=== PATIENT | male | born 1940 | race Caucasian/White ===

== ENCOUNTER 2016-11-30 12:01 | Outpatient (CLI) | payer MEDICARE, OTHER ==
[~2016-11-30] VITALS: Ht 175.3 cm; Wt 97.7 kg
--- NOTE | ~2016-11-30 | HEMODYNAMI ---
PATIENT:MARY MCKEON MEDICAL RECORD: [id number] : 42 LOCATION:[facility] ADMISSION DATE: 11/30/16 Generatedon:11/30/201615:44 Patient name: MARY MCKEON Patient #: [id number] : 1940 Date of study: 11/30/2016 Page: Of Hemodynamic Procedure Report Patient Data Patient Demographics Procedure consent was obtained First Name: MARY Gender: Male Last Name: LINDA : 1940 Middle Initial: R Age: 76 year(s) Patient #: [id number] Race: SSN: [id number] Additional ID: [id number] Contact details Address: [address] [place] [address] COURT State: [place] City: [facility] Zip code: [address] Past Medical History Allergies: No known allergies Admission Admission Data Admission Date: 11/30/2016 Admission Time: 12:01 Arrival Date: 11/30/2016 Arrival Time: 14:00 Admit Source: Other Insurance Payor: Medicare Height (in.): 69 BSA: 2.15 (m2) Height (cm.): 175.26 BMI: 32.34 (kg/m2) Weight (lbs.): 219 Weight (kg.): 99.34 Lab Results Lab Result Date: 11/30/2016 Lab Result Time: 0:00 Biochemistry Name Units Result Min Max BUN mg/dl 12 --(-*--)-- 7 18 Creatinine mg/dl 1 --(--*-)-- 0.6 1.3 CBC Name Units Result Min Max Hemoglobin g/dl 14.1 --(*---)-- 13.5 17.5 Procedure Procedure Types Cath Procedure Diagnostic Procedure [facility] w/Coronaries Miscellaneous Procedures Procedure Description Procedure Date Procedure Date: 11/30/2016 Procedure Start Time: 15:20 Procedure End Time: 15:41 Procedure Staff Name Function Long Taylor MD Performing Physician Anastacia Burger RT Scrub Zainab Almodovar RN Nurse Ileana Sierra RT Monitor Procedure Data Cath Procedure Fluoroscopy Diagnostic fluoroscopy Total fluoroscopy Time: 3.3 time: 3.3 min min Diagnostic fluoroscopy Total fluoroscopy dose: 595 dose: 595 mGy mGy Contrast Material Contrast Material Type Amount (ml) Isovue 300 84 Entry Location Entry Primary Successful Side Size Upsize Upsize Entry Closure Succes sful Closure Location (Fr) 1 (Fr) 2 (Fr) Remarks Device Remarks Femoral Right 5 Fr Exoseal artery Estimated blood loss: 10 ml Diagnostic catheters Device Type Used For End Catheter Placement Cordis 5Fr JL 4.0 Procedure Catheter (MP) Diagnostic Infinity 5Fr Procedure AR MOD Catheter Diagnostic 5Fr IMT Procedure Catheter Cordis 5Fr Pigtail Ventriculography Catheter (MP) Procedure Complications No complications Procedure Medications Medication Administration Route Dosage Oxygen NC 2 l/min Lidocaine 2% added to field 20 Heparin Flush Bag added to field 2 bags (1000units/500ml NS) 0.9% NaCl I.V. 100 ml/hr Benadryl I.V. 50 mg Versed I.V. 2 mg Fentanyl I.V. 50 mcg Versed I.V. 1 mg Fentanyl I.V. 50 mcg Versed I.V. 1 mg Fentanyl I.V. 50 mcg Hemodynamics Rest BSA: 2.15 (m2) HGB: 14.1 (g/dl) O2 Consumption: Estimated: 238.14 (ml/min) O2 Co nsumption indexed: Estimated:110.76 (ml/min/m) Heart Rate: 59 (bpm) Pressure Samples Time Site Value (mmHg) Purpose Heart Use Rate(bpm) 15:35 LV 144/-6,17 Snapshot 59 15:36 AO 136/56(87) Pullback 57 15:36 LV 138/-3,21 Pullback 57 Gradients Valve Time Site 1 Site 2 Mean SEP/DFP Peak To Heart Use (mmHg) (sec/min) Peak Rate (mmHg) (bpm) Aortic 15:36 LV AO 22 7 2 57 138/-3,21 136/56(87) Calculations Valve P-P Mean Valve Index Valve Source Name Gradient Area Flow (cm2) Aortic 2 22 2 22 Snapshots Pre Cath Intra NCS Post Cath Vital Signs Time Heart Resp SPO2 NIBP (mmHg) Rhythm Pain Sedation Rate (ipm) (%) Status Level (bpm) 15:13:12 58 19 97 152/79(125) NSR 0 (11) 10(A) , No pain 15:17:36 48 18 96 147/74(99) NSR 0 (11) 10(A) , No pain 15:21:42 52 16 95 119/92(112) NSR 0 (11) 10(A) , No pain 15:26:45 53 14 97 159/77(107) NSR 0 (11) 9(A) , No pain 15:31:07 54 16 96 144/77(98) NSR 0 (11) 9(A) , No pain 15:35:23 48 16 96 127/66(105) NSR 0 (11) 9(A) , No pain 15:39:41 53 17 97 146/75(106) NSR 0 (11) 10(A) , No pain Medications Time Medication Route Dose Verified Delivered Reason Notes Effe ctiveness by by 15:11:57 Oxygen NC 2 Long Buffie used for l/min Brandon Almodovar RN procedure 15:12:06 Lidocaine 2% added 20ml Long Long for local to vial Brandon Taylor MD anesthetic field 15:12:13 Heparin Flush added 2 Long Long used for Bag to bags Brandon Taylor MD procedure (1000units/500ml field NS) 15:12:23 0.9% NaCl I.V. 100 Long Buffie Per ml/hr Brandon Almodovar RN physician 15:12:34 Benadryl I.V. 50 mg Long Buffie used for Brandon Almodovar RN procedure 15:18:15 Versed I.V. 2 mg Long Buffie for Brandon Almodovar RN sedation 15:18:24 Fentanyl I.V. 50 Long Buffie for mcg Brandon Almodovar RN sedation 15:24:01 Versed I.V. 1 mg Long Buffie for Brandon Almodovar RN sedation 15:24:06 Fentanyl I.V. 50 Long Buffie for mcg Brandon Almodovar RN sedation 15:30:51 Versed I.V. 1 mg Long Buffie for Brandon Almodovar RN sedation 15:30:56 Fentanyl I.V. 50 Long Buffie for mcg Brandon Almodovar RN sedation Procedure Log Time Note 14:40:32 Anastacia Burger RT(R) sent for patient. Start room use. 14:53:11 Informed consent obtained and on chart 14:53:18 Arrival Date: 11/30/2016 2:00:00 PM 14:53:24 Insurance Payor : Medicare 14:53:25 Admit Source: Other 14:53:56 Patient Height : 175.26 cm 14:54:01 Patient Weight : 99.34 kg 14:56:59 Lab Result : Hemoglobin 14.1 g/dl 14:56:59 Lab Result : BUN 12 mg/dl 14:56:59 Lab Result : Creatinine 1 mg/dl 14:57:12 Diagnostic Cath Status : Elective 14:57:50 Time tracking: Regular hours 14:57:56 Plan of Care:Hemodynamics will remain stable., Cardiac rhythm will remain stable., Comfort level will be maintained., Respiratory function will remain adequate., Patient/ family verbilizes understanding of procedure., Procedure tolerated without complication., Recovers from procedure without complications.. 14:58:12 Patient received from Pre/Post Procedure Room to CCL 2 Alert and oriented. Tansferred to table in Supine position. 14:58:13 Warm blankets applied, and praveena hugger turned on for patient comfort. 14:58:13 Correct patient and procedure confirmed by team. 14:58:14 ECG and BP/O2 sat monitors applied to patient. 15:01:01 H&P Date Dictated: 11/30/2016 Within 30 days and on chart., H&P Addendum completed by physician on day of procedure. (MUST COMPLETE FOR ALL OUTPATIENTS). 15:01:12 Pre-procedure instructions explained to patient. 15:01:14 Family in waiting room. 15:01:17 Patient NPO since Midnight. 15:01:24 Patient allergic to No known allergies 15:01:32 Is the patient allergic to Iodine/contrast media? No. 15:01:43 Is patient on blood thinner?No 15:01:47 Patient diabetic? No. 15:01:52 Snore? Yes 15:01:53 Sleep apnea? Yes 15:01:59 Airway obstruction? No ? 15:02:03 Dentures? No ? 15:02:09 Patient pain scale 0/10 ?. 15:02:18 IV patent on arrival in left wrist with 0.9% NaCl at KVO. 15:02:23 Lab results completed and on chart. 15:: Right groin area was prepped with chlora-prep and draped in sterile fashion 15:: Alarms reviewed by R. N. 15:: Sharps counted by scrub and verified by R.N. 15:02:32 Physician paged 15:03:25 Physician arrived 15:07: Use device set Femoral Dx 15:: Acist Syringe opened to sterile field. 15:: Bag Decanter opened to sterile field. 15:: Medline Cath Pack opened to sterile field. 15:07: Terumo 5Fr Dar[place] Sheath opened to sterile field. 15:07: St Reyes 260cm J .035 wire opened to sterile field. 15:07:30 Acist Hand Control opened to sterile field. 15:: Acist Manifold opened to sterile field. 15::32 Diagnostic Infinity 5Fr Multipack catheter opened to sterile field. 15:07: Tegaderm 4 x 4 opened to sterile field. 15:11:57 Oxygen 2 l/min NC was administered by Zainab Almodovar RN; used for procedure; 15:11:58 Vital chart was started 15:12:06 Lidocaine 2% 20ml vial added to field was administered by Long Taylor MD; for local anesthetic; 15:12:13 Heparin Flush Bag (1000units/500ml NS) 2 bags added to field was administered by Long Taylor MD; used for procedure; 15:12:23 0.9% NaCl 100 ml/hr I.V. was administered by Zainab Almodovar RN; Per physician; 15:12:34 Benadryl 50 mg I.V. was administered by Zainab Almodovar RN; used for procedure; 15:14:33 --------ALL STOP TIME OUT------ 15:14:34 Final Timeout: patient, procedure, and site verified with staff and physician. All members of the team are in agreement. 15:14:36 Right groin site verified by team. 15:14:39 Physical assessment completed. ASA score P 2 - A patient with mild systemic disease as per Long Taylor MD. 15:14:43 Sedation plan: IV Moderate Sedation Versed, Fentanyl 15:18:15 Versed 2 mg I.V. was administered by Buffie Almodovar RN; for sedation; 15:18:24 Fentanyl 50 mcg I.V. was administered by Zainab Almodovar RN; for sedation; 15:20:06 Procedure started. 15:20:06 Full Disclosure recording started 15:20:09 Local anesthetic to right femoral artery with Lidocaine 2% by Long Taylor MD.INITIAL ACCESS ONLY 15:21:59 A 5 Fr sheath was inserted into the Right Femoral artery 15:22:03 ? wire advanced. 15:22:20 A Cordis 5Fr JL 4.0 Catheter (MP) was advanced over the wire and used for Procedure. 15:23:48 LCA angiography performed. 15:24:01 Versed 1 mg I.V. was administered by Zainab Almodovar RN; for sedation; 15:24:06 Fentanyl 50 mcg I.V. was administered by Zainab Almodovar RN; for sedation; 15:24:52 Catheter removed. 15:25:57 A Diagnostic Infinity 5Fr AR MOD Catheter was advanced over the wire and used for Procedure. 15:26:13 RCA angiography performed. 15:27:27 SVG to Diag occluded. 15:28:00 SVG to RCA occluded. 15:28:29 SVG to Circ angiography performed. 15:30:51 Versed 1 mg I.V. was administered by Zainab Almodovar RN; for sedation; 15:30:56 Fentanyl 50 mcg I.V. was administered by Zainab Almodovar RN; for sedation; 15:32:08 A Diagnostic 5Fr IMT Catheter was advanced over the wire and used for Procedure. 15:32:18 EVANS to LAD angiography performed. 15:35:22 Catheter removed. 15:35:27 A Cordis 5Fr Pigtail Catheter (MP) was advanced over the wire and used for Ventriculography. 15:36:24 EF : 60 % 15:37:16 Catheter removed. 15:38:05 Cordis 5Fr Exoseal opened to sterile field. 15:38:57 Sheath removed intact; hemostasis achieved with Exoseal to the Right Femoral artery. 15:39:01 Procedure ended.(Physican Out) 15:39:13 Fluoroscopy time 03.30 minutes. 15:39:17 Flurop Dose total: 595 15:39:17 Fluoroscopy dose: 595 mGy 15:39:21 Contrast amount:Isovue 300 84ml. 15:39:23 Sharps counted by scrub and verified by R.N. 15:39:26 Insertion/operative site no bleeding no hematoma. 15:39:30 Post-op/insertion site Right Femoral artery dressed using a 4 x 4 and Tegaderm. 15:39:33 Post Procedure Pulses reassessed and unchanged 15:39:38 Post-procedure physical assessment completed. ASA score P 2 - A patient with mild systemic disease as per Long Taylor MD. 15:39:42 Post procedure rhythm: unchanged. 15:39:49 Estimated blood loss: 10 ml 15:39:54 Post procedure instruction explained to patient.Patient verbalizes understanding. 15:40:11 Procedure and supply charges have been captured, reviewed, submitted and are correct. 15:40:51 Procedure Complication : No complications 15:40:55 Vital chart was stopped 15:40:56 See physician's report for complete and final results. 15:41:03 Report given to Pre/Post Procedure Room. 15:41:06 Patient transfered to Pre/Post Procedure Room with Stretcher. 15:41:09 Procedure ended. 15:41:09 Full Disclosure recording stopped 15:41:13 End room use (Document Last) Device Usage Item Name Manufacture Quantity Catalog Number Hospital Part Current Minima l Lot# / Charge Number Stock Stock Serial# Code Acist Acist 1 [id number] [id number] 143411 067880 20 Syringe [employer] Bag Microtek 1 [id number] 04439 [id number] 5 Decanter [employer] Medline Cardinal 1 [id number] 290563 53036 994051 5 Cath Pack Health Terumo 5Fr Terumo 1 [id number] 056437 450513 159695 [address] St Reyes 1 327156 757474 033023 329800 30 260cm J .035 wire Acist Hand Acist 1 76285 311312 220939 516781 5 Control [employer] Inc Acist Acist 1 13550 363545 970036 106770 5 Manifold [employer] Inc Diagnostic Cardinal 1 [id number] 175822 39037 662714 30 ALICE App 5Fr Multipack catheter Tegaderm 4 3M 1 1626W 765879 109747 323918 5 x 4 Cordis 5Fr Cardinal 1 756812 5 JL 4.0 Health Catheter (MP) Diagnostic Cardinal 1 [id number] 534667 508900 450711 15 Infinity Health 5Fr AR MOD Catheter Diagnostic Henderson 1 [id number] 568545 963953 01064 5 5Fr IMT Scientific Catheter Cordis 5Fr Cardinal 1 [id number] 5 Pigtail Health Catheter (MP) Cordis 5Fr Cardinal 1 EX500 471391 295129 337470 10 [facility] Taecanet Signature Audit Lefor Stage Time Signature Unsigned Intra-Procedure 11/30/2016 Ileana Sierra 3:44:15 PM RT(R) Signatures Monitor : Ileana Sierra Signature : RT Date : Time : [place] [address] [place] [address]
[~2016-11-30 12:01] MED LIST: ACETAMINOPHEN325 MG PO; AMOXICILLIN500 M1 PO; CARDURA4 MG PO; COZAAR100 MG PO; KLOR-CON 1010 MEQ PO; LIPITOR40 MG PO; MIRAPEX0.125 MG PO; NORVASC10 MG PO; PROZAC10 MG PO; SYNTHROID100 MCG PO; ULTRAM50 MG PO; VITAMIN D31000 UNIT PO; XANAX1 MG PO; ZEBETA10 MG PO; ZIAC 10-6.25 MG1 TAB PO
[2016-11-30] MEDS ORDERED: NITROSTAT0.4 MG SL (13:12)
[2016-11-30] MEDS ORDERED: MAG 6464 MG PO (13:13)
[2016-11-30] MEDS ORDERED: BAYER CHEWABLE81 MG PO (13:14)
[2016-11-30] MEDS ORDERED: PROTONIX40 MG PO (13:14)
[2016-11-30] MEDS ORDERED: NEURONTIN 300300 MG PO (13:15)
[2016-11-30 13:24] VITALS: BP 148/69; Ht 175.3 cm; Wt 97.7 kg
[2016-11-30 13:41] LABS: CALC OSMOLALITY 280 mosm/kg (275-300); CALCIUM 8.5 mg/dL (8.5-10.1); CARBON DIOXIDE 27.2 mmol/L (21.0-32.0); CHLORIDE - SERUM 104 mmol/L (98-107); GLUCOSE 95 mg/dL (74-106); POTASSIUM - SERUM 3.8 mmol/L (3.5-5.1); SODIUM 141 mmol/L (136-145); UREA NITROGEN 12 mg/dL (7-18); eGFR NON AFRICAN AMERICAN 77 mL/min (90-120)
[2016-11-30 14:01] LABS: BASOPHILS 0.4 % (0-2); EOSINOPHILS 2.2 % (0-7); HEMATOCRIT 42.9 % (42.0-54.0); HEMOGLOBIN 14.1 g/dL (13.5-17.5); IMMATURE GRANULOCYTES 0.2 % (0-5); LYMPHOCYTES 35.9 % (15-50); MCH 24.3 pg (26.0-34.0); MCHC 32.9 g/dL (31.0-37.0); MEAN PLATELET VOLUME 11.2 fL (7.4-10.4); MONOCYTES 8.3 % (2-11); PLATELET COUNT 146 10x3/uL (130-400); RDW 16.3 % (11.5-14.5); WBC 5.6 10x3/uL (4.8-10.8)
--- NOTE | 2016-11-30 16:00 | NUR ---
RIGHT GROIN CDI-BANDAID AT SITE, NO HEMATOMA OR BLEEDING NOTED, SITE SOFT TO TOUCH. AT SIDE
--- NOTE | 2016-11-30 16:30 | NUR ---
SANDWICH AND COLA SERVED, DENIES FURTHUR NEEDS AT THIS TIME
--- NOTE | 2016-11-30 18:15 | NUR ---
IV D'C WITH CATH TIP INTACT, WRITTEN AND VERBAL D'C INSTRUCTIONS GIVEN TO PT AND . AWAITING RIDE. DENIES PAIN OR FURTHUR NEEDS 1830-D'C HOME WITH FAMILY
== END 2016-11-30 18:30 | disposition home or self-care (01) ==
LOC: D.CATH 12:01
PROVIDERS: Internal Medicine Cardiovascular Disease
DX: I25.110 Atherosclerotic heart disease of native coronary artery with unstable angina pectoris (principal); I25.710 Atherosclerosis of autologous vein coronary artery bypass graft(s) with unstable angina pectoris; I10 Essential (primary) hypertension; E78.5 Hyperlipidemia, unspecified; F32.9 Major depressive disorder, single episode, unspecified; E07.9 Disorder of thyroid, unspecified; Z79.891 Long term (current) use of opiate analgesic; Z79.2 Long term (current) use of antibiotics; Z79.899 Other long term (current) drug therapy; Z01.812 Encounter for preprocedural laboratory examination

== ENCOUNTER 2017-01-04 12:14 | Emergency (ER) | payer MEDICARE, OTHER ==
[2016-11-30 13:24] VITALS: BMI 31.8
[~2017-01-04 12:14] MED LIST changes: +BAYER CHEWABLE81 MG PO; +MAG 6464 MG PO; +NEURONTIN 300300 MG PO; +NITROSTAT0.4 MG SL; +PROTONIX40 MG PO
[2017-01-04 13:38] LABS: APPEARANCE CLEAR (CLEAR); BILIRUBIN NEGATIVE (NEGATIVE); COLOR YELLOW (YELLOW); GLUCOSE NEGATIVE (NEGATIVE); KETONE NEGATIVE (NEGATIVE); LEUKOCYTE ESTERASE NEGATIVE (NEGATIVE); NITRITE NEGATIVE (NEGATIVE); PROTEIN NEGATIVE (NEGATIVE); SPECIFIC GRAVITY 1.015 (1.005-1.020); UROBILINOGEN NORMAL (NORMAL)
[2017-01-04 13:40] LABS: BACTERIA FEW /hpf (NONE SEEN); EPITHELIAL CELLS 0-5 /hpf (0-5); GRANULAR CAST RARE /lpf (NONE SEEN); HYALINE CAST OCC /lpf (NONE SEEN); MUCUS <1+ /lpf (NONE SEEN); RED CELLS - URINE 0-5 /hpf (0-5); WHITE CELLS - URINE RARE /hpf (0-5)
== END 2017-01-04 16:04 | disposition home or self-care (01) ==
LOC: D.ER 12:14
PROVIDERS: Emergency Medicine
DX: R33.9 Retention of urine, unspecified (principal); N40.0 Benign prostatic hyperplasia without lower urinary tract symptoms; I10 Essential (primary) hypertension; Z86.79 Personal history of other diseases of the circulatory system; K59.00 Constipation, unspecified

== ENCOUNTER 2017-01-07 22:29 | Emergency (ER) | payer MEDICARE, OTHER ==
[2016-11-30 13:24] VITALS: BMI 31.8
[2017-01-07 23:24] LABS: APPEARANCE CLEAR (CLEAR); COLOR GREEN (YELLOW); GLUCOSE NEGATIVE (NEGATIVE); KETONE NEGATIVE (NEGATIVE); NITRITE NEGATIVE (NEGATIVE); PROTEIN NEGATIVE (NEGATIVE); UROBILINOGEN NORMAL (NORMAL)
[2017-01-07 23:25] LABS: BACTERIA NONE SEEN /hpf (NONE SEEN); BILIRUBIN NEGATIVE (NEGATIVE); EPITHELIAL CELLS NSEEN /hpf (0-5); WHITE CELLS - URINE 0-5 /hpf (0-5)
== END 2017-01-07 23:19 | disposition home or self-care (01) ==
LOC: D.ER 22:29
PROVIDERS: Family Medicine
DX: R33.9 Retention of urine, unspecified (principal); N40.0 Benign prostatic hyperplasia without lower urinary tract symptoms; I10 Essential (primary) hypertension

== ENCOUNTER 2017-01-08 07:26 | Emergency (ER) | payer MEDICARE, OTHER ==
[2016-11-30 13:24] VITALS: BMI 31.8
== END 2017-01-08 10:45 | disposition home or self-care (01) ==
LOC: D.ER 07:26
DX: R33.9 Retention of urine, unspecified (principal); T83.098A Other mechanical complication of other urinary catheter, initial encounter; N40.0 Benign prostatic hyperplasia without lower urinary tract symptoms; I10 Essential (primary) hypertension

== ENCOUNTER 2017-08-07 09:53 | Emergency (ER) | payer MEDICARE, OTHER ==
[2016-11-30 13:24] VITALS: BMI 31.8
[2017-08-07 10:12] LABS: BASOPHILS 0.4 % (0-2); EOSINOPHILS 0.9 % (0-7); HEMATOCRIT 42.8 % (42.0-54.0); HEMOGLOBIN 14.1 g/dL (13.5-17.5); IMMATURE GRANULOCYTES 0.6 % (0-5); LYMPHOCYTES 8.8 % (15-50); MCH 24.2 pg (26.0-34.0); MCHC 32.9 g/dL (31.0-37.0); MCV 73.5 fL (80.0-100.0); MEAN PLATELET VOLUME 9.8 fL (7.4-10.4); MONOCYTES 5.7 % (2-11); NEUTROPHILS 83.6 % (40-80); PLATELET COUNT 130 10x3/uL (130-400); RBC 5.82 10x6/uL (4.20-6.10); RDW 15.6 % (11.5-14.5); WBC 6.8 10x3/uL (4.8-10.8)
[2017-08-07 10:26] LABS: ALBUMIN 3.7 g/dL (3.4-5.0); ALKALINE PHOSPHATASE 65 U/L (46-116); ALT (SGPT) 56 U/L (10-68); BILIRUBIN - TOTAL 1.49 mg/dL (0.2-1.3); CALC OSMOLALITY 274 mosm/kg (275-300); CALCIUM 8.6 mg/dL (8.5-10.1); CARBON DIOXIDE 17.6 mmol/L (21.0-32.0); CHLORIDE - SERUM 102 mmol/L (98-107); CREATININE - SERUM 1.3 mg/dL (0.6-1.3); GLUCOSE 139 mg/dL (74-106); POTASSIUM - SERUM 3.7 mmol/L (3.5-5.1); SODIUM 135 mmol/L (136-145); UREA NITROGEN 22 mg/dL (7-18); eGFR NON AFRICAN AMERICAN 57 mL/min (90-120)
[2017-08-07 10:46] LABS: CREATINE KINASE 325 UL (21-232); PRO BNP 368 pg/mL (0-450); TROPONIN-I 0.018 ng/mL (0.000-0.060)
[2017-08-07 10:50] LABS: CKMB 0.5 U/L (0.0-3.6)
[2017-08-07 11:24] LABS: APPEARANCE CLEAR (CLEAR); BILIRUBIN NEGATIVE (NEGATIVE); COLOR YELLOW (YELLOW); GLUCOSE NEGATIVE (NEGATIVE); KETONE NEGATIVE (NEGATIVE); NITRITE NEGATIVE (NEGATIVE); PROTEIN NEGATIVE (NEGATIVE); SPECIFIC GRAVITY 1.015 (1.005-1.020); UROBILINOGEN NORMAL (NORMAL)
== END 2017-08-07 17:58 ==
LOC: D.ER 09:53 → D.ICU 15:15 → D.ER 15:15
PROVIDERS: Emergency Medicine
DX: I50.9 Heart failure, unspecified (principal); J81.0 Acute pulmonary edema; R09.02 Hypoxemia; J15.9 Unspecified bacterial pneumonia; I10 Essential (primary) hypertension